=== PATIENT | male | born 1945 | race Caucasian/White ===

== ENCOUNTER 2018-05-30 10:41 | Outpatient (CLI) | payer MEDICARE, BC ==
[~2018-05-30] VITALS: Ht 177.8 cm; Wt 86.4 kg
--- NOTE | ~2018-05-30 | TEE ---
PATIENT:CRISTINA ALEJANDRO MEDICAL RECORD: [id number] LOCATION:D[facility] AGE OF PATIENT: 72 ADMISSION DATE: 05/30/18 SEX: M REFERRING PHYSICIAN: INTERPRETING PHYSICIAN: RY PIMENTEL MD TRANSESOPHAGEAL ECHOCARDIOGRAM Date: 05/30/18 RAHUL CHARGE Y INDICATIONS: ASSESS MITRAL REGURG PREMEDICATIONS: PATIENT'S RESPONSE PROCEDURE DOPPLER MEASUREMENTS: LVIT LA PA RA LVOT RVOT Asc. Ao AV Gradient Peak AV Mean AV Area MV Gradient Peak MV Mean MV Area INTERPRETATION: Doppler: 2-D: MVP NOTED COLOR FLOW DOPPLER TRACE/MILD TR, MILD MR, TRACE AI NORMAL SALINE STUDY: MISCELLANOUS: DIAGNOSIS: PLAN: Storeroom Supervisor:3 Dr. Pace Photo Lab Specialist: Onel AMAYA COMMENTS: DATE OF SERVICE: 05/30/2018 TRANSESOPHAGEAL NOTE After general sedation via TIVA via anesthesia, transesophageal Omniplane probe was placed in the distal esophagus and proximal stomach without difficulty. FINDINGS: Normal LV internal dimension, wall motion, and systolic function. EF is greater than 55%. Aortic valve is tricuspid. There is good valve excursion TRANSESOPHAGEAL ECHOCARDIOGRAM REPORT [id number] EVAN ALEJANDRO and trivial AI by color flow imaging. Left atrium grossly appears normal. Left atrial appendage is well visualized with good contractility. Mitral valve does show mitral valve prolapse with mild plus MR. No evidence of prolapse of any structures into the left atrium. Right-sided chambers are grossly normal. Mild TR. At the end of procedure, transesophageal Omniplane probe was turned posterior and this showed minimal atherosclerotic debris in descending aorta. IMPRESSION: Mitral valve prolapse. No evidence of ruptured chordae. Mild plus MR only. TRANSINT:[id number] Voice Confirmation ID: [id number] DOCUMENT ID: [id number] CC: [id number] DICTATION DATE: 05/30/18 1325 ADDICTION THERAPIST: 05/30/18 1337 DEP CLI 05/30/18 [address] [place] [address]
--- NOTE | ~2018-05-30 | HEMODYNAMI ---
PATIENT:CRISTINA ALEJANDRO MEDICAL RECORD: [id number] : 43 LOCATION:[facility] ADMISSION DATE: 05/30/18 Generatedon:05/30/201813:15 Patient name: CRISTINA ALEJANDRO Patient #: [id number] SSN: D OB: 1945 Date of study: 05/30/2018 Page: Of Hemodynamic Procedure Report Patient Data Patient Demographics Procedure consent was obtained First Name: CRISTINA Gender: Male Last Name: JAVON : 1945 Patient #: [id number] Age: 72 year(s) Race: Unknown Additional ID: [id number] Contact details [address]: [address] [place] [address] State: [place] City: [place] Zip code: [address] Past Medical History Allergies Allergen Reaction Date Comments Reported Other allergy 05/30/2018 tape Admission Admission Data Admission Date: 05/30/2018 Admission Time: 10:41 Admit Source: Other Lab Results Lab Result Date: 05/30/2018 Lab Result Time: 11:30 Biochemistry Name Units Result Min Max BUN mg/dl 19 --(----)*- 7 18 Creatinine mg/dl 0.7 --(*---)-- 0.6 1.3 CBC Name Units Result Min Max Hematocrit % 41.6 -*(----)-- 42 54 Hemoglobin g/dl 14.4 --(*---)-- 13.5 17.5 Procedure Procedure Types Cath Procedure Diagnostic Procedure RAHUL Procedure Description Procedure Date Procedure Date: 05/30/2018 Procedure Start Time: 13:02 Procedure End Time: 13:15 Procedure Staff Name Function Mg Toro MD Performing Physician Martir Shelton RT Monitor Elías Valentin RN Nurse Abner Lees RN Bit Setter Aquiles Torres Jr, CRNA Additional personnel Barak Chacko Hob Grinder Procedure Data Cath Procedure Fluoroscopy Diagnostic fluoroscopy Total fluoroscopy Time: 0 time: 0 min min Diagnostic fluoroscopy Total fluoroscopy dose: 0 dose: 0 mGy mGy Contrast Material Contrast Material Type Amount (ml) Isovue 300 0 Estimated blood loss: 0 ml Procedure Complications No complications Procedure Medications Medication Administration Route Dosage 0.9% NaCl I.V. 100 ml/hr Hurricaine [place] P.O. Sprays Refer to Anesthesia Notes for Sedation Medications Oxygen etCO2 Nasal cannula 3 l/min Hemodynamics Rest HGB: 14.4 (g/dl) Heart Rate: 56 (bpm) Snapshots Pre Cath Intra NCS Post Cath Vital Signs Time Heart Resp SPO2 etCO2 NIBP (mmHg) Rhythm Pain Sedation Rate (ipm) (%) (mmHg) Status Level (bpm) 12:41:31 55 13 100 33.9 166/83(128) NSR 0 (11) 10(A) , No pain 12:46:22 62 13 100 32.4 173/82(152) NSR 0 (11) 10(A) , No pain 12:51:43 53 16 100 29.4 169/80(138) NSR 0 (11) 10(A) , No pain 12:57:05 53 19 100 34.6 166/74(134) NSR 0 (11) 10(A) , No pain 13:01:47 59 20 100 31.6 160/86(135) NSR 0 (11) 10(A) , No pain 13:06:32 73 22 99 29.4 170/92(146) NSR 0 (11) 9(A) , No pain 13:11:17 56 16 99 34.6 135/64(99) NSR 0 (11) 10(A) , No pain Medications Time Medication Route Dose Verified Delivered Reason Notes Effecti veness by by 12:43:03 Oxygen etCO2 3 Elías Elías Per Nasal l/min Homero Valentin physician cannula RN RN 12:43:32 0.9% NaCl I.V. 100 Elías Elías Per ml/hr Homero Valentin physician RN RN 12:43:48 Hurricaine P.O. Sprays Elías Elías for local [place] Homero Valentin anesthetic RN RN 13:00:56 Refer to Elías Elías for Anesthesia Homero Valentin sedation Notes for RN RN Sedation Medications Procedure Log Time Note 12:33:01 Informed consent obtained and on chart 12:33:04 Admit Source: Other 12:33:28 Diagnostic Cath status Elective 12:33:30 Abner Lees RN sent for patient. Start room use. 12:33:31 Time tracking: Regular hours (M-F 7:00 - 5:00) 12:33:38 Plan of Care:Hemodynamics will remain stable., Cardiac rhythm will remain stable., Comfort level will be maintained., Respiratory function will remain adequate., Patient/ family verbilizes understanding of procedure., Procedure tolerated without complication., Recovers from procedure without complications.. 12:35:36 Patient arrived from Pre/Post Procedure Room to [facility]. Patient remains on bed/stretcher for procedure. 12:35:42 Warm blankets applied, and rosales hugger turned on for patient comfort. 12:35:42 Correct patient and procedure confirmed by team. 12:35:44 ECG and BP/O2 sat monitors applied to patient. 12:36:12 Aquiles Torres Jr, CRNA present and monitoring patient for TIVA. 12:40:32 Vital chart was started 12:40:42 Baseline sample Acquired. 12:40:52 Rhythm: unchanged. 12:40:58 Full Disclosure recording started 12:41:12 H&P Date Dictated: 05/04/2018 Within 30 days and on chart., H&P Addendum completed by physician on day of procedure. (MUST COMPLETE FOR ALL OUTPATIENTS). 12:41:14 Pre-procedure instructions explained to patient. 12:41:14 Pre-op teaching completed and patient verbalized understanding. 12:41:16 Family in waiting room. 12:41:17 Patient NPO since Midnight. 12:41:26 Patient allergic to Other allergytape 12:41:28 Is the patient allergic to Iodine/contrast media? No. 12:42:53 Is patient on blood thinner?No 12:43:03 Oxygen 3 l/min etCO2 Nasal cannula was administered by Elías Valentin RN; Per physician; 12:43:26 Patient diabetic? No. 12:43:28 Previous problem with sedation/anesthesia? No ? 12:43:29 Snore? No 12:43:30 Sleep apnea? No 12:43:31 Deviated septum? No 12:43:32 0.9% NaCl 100 ml/hr I.V. was administered by Elías Valentin RN; Per physician; 12:43:33 Opens mouth fully? Yes 12:43:34 Sticks out tongue? Yes 12:43:35 Airway obstruction? No ? 12:43:37 Dentures? No ? 12:43:40 Patient pain scale 0/10 ?. 12:43:48 Hurricaine [place] Sprays P.O. was administered by Elías Valentin RN; for local anesthetic; 12:43:56 IV patent on arrival in left hand with 0.9% NaCl at [facility]. 12:45:03 Lab Result : BUN 19 mg/dl 12:45:03 Lab Result : Creatinine 0.7 mg/dl 12:45:03 Lab Result : Hemoglobin 14.4 g/dl 12:45:03 Lab Result : Hematocrit 41.6 % 12:45:06 Lab results completed and on chart. 12:45:09 Alarms reviewed by R. N. 12:48:00 Physician paged 12:55:20 Barak Chacko [employer] Specialist present for RAHUL. 12:59:27 Physician arrived 12:59:27 --------ALL STOP TIME OUT------ 12:59:28 Final Timeout: patient, procedure, and site verified with staff and physician. All members of the team are in agreement. 12:59:34 Physical assessment completed. ASA score P 3 - A patient with severe systemic disease as per Mg Toro MD. 12:59:46 Sedation plan: TIVA Medication:Propofol 13:00:56 Refer to Anesthesia Notes for Sedation Medications was administered by Elías Valentin RN; for sedation; 13:02:08 Procedure started. 13:02:27 RAHUL started. 13:09:16 RAHUL completed. 13:09:53 Procedure ended.(Physican Out) 13:10:04 Fluoroscopy time 00.00 minutes. 13:10:06 Fluoroscopy dose: 0 mGy 13:10:06 Flurop Dose total: 0 13:10:08 Contrast amount:Isovue 300 0ml. 13:10:10 Sharps counted by scrub and verified by R.N. 13:10:16 Post-procedure physical assessment completed. ASA score P 3 - A patient with severe systemic disease as per Mg Toro MD. 13:10:18 Post procedure rhythm: unchanged. 13:10:20 Estimated blood loss: 0 ml 13:10:21 Post procedure instruction explained to patient.Patient verbalizes understanding. 13:10:22 Patient needs reinforcement of post procedure teaching. 13:10:33 Procedure and supply charges have been captured, reviewed, submitted and are correct. 13:10:35 Procedure Complication : No complications 13:15:26 Vital chart was stopped 13:15:27 See physician's report for complete and final results. 13:15:28 Report given to Pre/Post Procedure Room. 13:15:31 Patient transfered to Pre/Post Procedure Room with Stretcher. 13:15:32 Procedure ended. 13:15:32 Full Disclosure recording stopped 13:15:36 End room use (Document Last) Signature Audit [place] Stage Time Signature Unsigned Intra-Procedure 05/30/2018 Martir Shelton 1:15:50 PM RT(R) Signatures Monitor : Martir Shelton RT Signature : Date : Time : [address] [place] [address]
[2018-05-30] MEDS ORDERED: ZESTORETIC 20-1 EACH PO (11:21)
[2018-05-30 11:29] VITALS: BP 154/69; Ht 177.8 cm; Wt 86.4 kg
[2018-05-30 11:47] LABS: BASOPHILS 0.6 % (0-2); EOSINOPHILS 1.2 % (0-7); HEMATOCRIT 41.6 % (42.0-54.0); HEMOGLOBIN 14.4 g/dL (13.5-17.5); IMMATURE GRANULOCYTES 0.2 % (0-5); LYMPHOCYTES 26.1 % (15-50); MCH 31.2 pg (26.0-34.0); MCHC 34.6 g/dL (31.0-37.0); MONOCYTES 9.7 % (2-11); NEUTROPHILS 62.2 % (40-80); PLATELET COUNT 154 10x3/uL (130-400); RBC 4.62 10x6/uL (4.20-6.10); RDW 13.2 % (11.5-14.5); WBC 5.2 10x3/uL (4.8-10.8)
[2018-05-30 12:09] LABS: CALC OSMOLALITY 280 mosm/kg (275-300); CALCIUM 8.9 mg/dL (8.5-10.1); CARBON DIOXIDE 27.8 mmol/L (21.0-32.0); CHLORIDE - SERUM 102 mmol/L (98-107); CREATININE - SERUM 0.7 mg/dL (0.6-1.3); GLUCOSE 122 mg/dL (74-106); POTASSIUM - SERUM 4.4 mmol/L (3.5-5.1); SODIUM 139 mmol/L (136-145); UREA NITROGEN 19 mg/dL (7-18); eGFR NON AFRICAN AMERICAN > 90 mL/min (90-120)
== END 2018-05-30 14:30 ==
LOC: D.CATH 10:41
PROVIDERS: Internal Medicine Cardiovascular Disease
DX: I34.0 Nonrheumatic mitral (valve) insufficiency (principal); I34.1 Nonrheumatic mitral (valve) prolapse; Z01.812 Encounter for preprocedural laboratory examination